=== PATIENT | male | born 1995 | race Caucasian/White ===

== ENCOUNTER 2018-08-25 23:49 | Emergency (ER) | payer BC, MEDICAID ==
[2018-08-26] MEDS ORDERED: IPRATROPIUM-ALBUTEROL 3 ML NEB INHALATION STA ×2 (00:12→01:31)
[2018-08-26 00:37] VITALS: RESP 18
[2018-08-26 01:22] VITALS: BP 113/65; TEMP 98.6
--- NOTE | 2018-08-26 01:28 | XR ---
EXAM: XR Chest, 2 Views CLINICAL HISTORY: ITS.REASON XR Reason: Pain TECHNIQUE: Frontal and lateral views of the chest. COMPARISON: No relevant prior studies available. FINDINGS: Lungs: Unremarkable. No consolidation. Pleural space: Unremarkable. No pneumothorax. Heart: Unremarkable. No cardiomegaly. Mediastinum: Unremarkable. Bones/joints: Unremarkable. IMPRESSION: Normal chest x-rays.
[2018-08-26] MEDS ORDERED: predniSONE 20 MG TAB PO STA (01:31)
--- NOTE | 2018-08-26 01:38 | ED ---
URI HPI - General Chief Complaint: Upper Respiratory Infection Stated Complaint: HEIDI Source: patient Mode of arrival: wheelchair Limitations: no limitations - History of Present Illness Initial Comments: Ramón is a previously healthy 22-year-old male who is brought to the emergency department today by his mother for evaluation of upper respiratory symptoms and shortness of breath. Patient mother reports that as a child he did have intermittent wheezing and was prescribed albuterol though he never had a formal diagnosis of asthma. Patient reports that for the past few days he's had nasal congestion and runny stuffy nose and a minimally productive cough. Patient reports that today he was just feeling like he was wheezing in his chest was very tight which made him feel very tired and prompted him to ask his mother brings the ER for further evaluation. Patient reports she's had subjective fevers but doesn't have a thermometer at home. Treated. He's been taking Tylenol and Motrin for body aches. Patient states he did not receive a flu vaccination this year. - Related Data Previous Rx's Medication Instructions Recorded Albuterol Inhaler [Ventolin Hfa 1 - 2 puff INHALATION RT-Q6H PRN 08/26/18 Inhaler] #1 inhaler predniSONE [Deltasone] 40 mg PO DAILY 5 Days #10 tablet 08/26/18 Allergies Allergy/AdvReac Type Severity Reaction Status Date / Time No Known Allergies Allergy Verified 02/12/14 12:30 Review of Systems ROS Statement: Those systems with pertinent positive or pertinent negative responses have been documented in the HPI. ROS Other: All systems not noted in ROS Statement are negative. Past Medical History Past Medical History: Thyroid Disorder Additional Past Medical History / Comment(s): headaches History of Any Multi-Drug Resistant Organisms: MRSA Date of last positivie culture/infection: 2009 MDRO Source:: leg Past Surgical History: Ear Surgery, Hernia Repair Past Psychological History: Depression Smoking Status: Never smoker Past Alcohol Use History: Occasional Past Drug Use History: Marijuana General Exam - General Exam Comments Initial Comments: Physical Exam GENERAL: Patient is well-developed and well-nourished. Patient is nontoxic and well- hydrated and is in no distress. HENT: Normocephalic, Atraumatic. EYES: PERRL, EOMI PULMONARY: Expiratory wheezing CARDIOVASCULAR: There is a regular rate and rhythm without any murmurs gallops or rubs. ABDOMEN: Soft and nontender with normal bowel sounds. SKIN: Skin is clear with no lesions or rashes and otherwise unremarkable. : Deferred NEUROLOGIC: Patient is alert and oriented x3. Moving all extremities spontaneously MUSCULOSKELETAL: Normal extremities with adequate strength and full range of motion. No lower extremity swelling or edema. No calf tenderness. PSYCHIATRIC: Normal psychiatric evaluation. Limitations: no limitations Limitations: no limitations Course Vital Signs 08/25/18 08/26/18 08/26/18 23:55 00:37 00:42 Temperature 99.1 F Pulse Rate 70 75 76 Respiratory 20 18 18 Rate Blood Pressure 122/64 O2 Sat by Pulse Oximetry 08/26/18 08/26/18 08/26/18 01:20 01:51 02:02 Temperature 98.6 F Pulse Rate 64 73 76 Respiratory 18 18 18 Rate Blood Pressure 113/65 O2 Sat by Pulse 95 Oximetry Medical Decision Making - Medical Decision Making Patient was seen and evaluated history was obtained from the patient Patient with multiple days of URI-like symptoms, nasal congestion rhinorrhea, post nasal drip, minimally productive wheezy cough next and on exam patient has expiratory wheezing Patient was ordered a DuoNeb and chest x-ray and examined patient reported significant improvement after DuoNeb chest x-ray with no acute findings I have a high suspicion that the patient likely has a viral syndrome possibly influenza however his symptoms of been present for greater than 48 hours he would not benefit from Tamiflu at this time we'll continue to treat symptomatically patient agreeable to this Patient was given a second DuoNeb prior to discharge which she again reported improved his symptoms and signed patient discharged home with by mouth prednisone and a prescription for an albuterol inhaler all questions pertaining care were answered return parameters discussed patient discharged home in stable condition. Disposition Clinical Impression: Viral infection Disposition: HOME SELF-CARE Instructions (If sedation given, give patient instructions): Upper Respiratory Infection (ED) Prescriptions: Albuterol Inhaler [Ventolin Hfa Inhaler] 1 - 2 puff INHALATION RT-Q6H PRN #1 inhaler PRN Reason: Wheezing predniSONE [Deltasone] 40 mg PO DAILY 5 Days #10 tablet Is patient prescribed a controlled substance at d/c from ED?: No Referrals: Scooter Somers MD [Primary Care Provider] - 1-2 days
[2018-08-26 02:03] VITALS: PULSE 76
== END 2018-08-26 02:07 | disposition home or self-care (01) ==
LOC: EC 23:49
DX: B34.9 Viral infection, unspecified (principal)
CPT/HCPCS: 94640 ×2; 71046; 99285; J7512

== ENCOUNTER 2021-02-04 11:29 | Emergency (ER) | payer OTHER, MEDICAID, BC ==
[2021-02-04 11:38] VITALS: BP 131/83; PULSE 68; RESP 18; TEMP 98.8
[2021-02-04] MEDS ORDERED: DIPH,PERTUS(ACELL)TETVAC-LF 0.5 ML VIAL IM ONE (11:47)
[2021-02-04] MEDS ORDERED: GELATIN SPONGE,ABSORB (SMALL) 1 EACH SPONGE TOPICAL STA (11:47)
[2021-02-04] MEDS ORDERED: SILVER NITRATE APPLICATOR 1 EACH STICK..EA. TOPICAL STA (11:47)
--- NOTE | 2021-02-04 12:19 | XR ---
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 Joint spaces are preserved. There is distal tip index finger soft tissue trauma. No osseous involvement is evident. No radiopaque foreign bodies are evident. IMPRESSION: 1. Distal soft tissue trauma index finger. No underlying osseous abnormality is evident.
--- NOTE | 2021-02-04 12:32 | ED ---
Wound/Laceration HPI - General Chief Complaint: Wound/Laceration Stated Complaint: [facility] Finger lac Time Seen by Provider: 02/04/21 11:41 Source: patient Mode of arrival: ambulatory Limitations: no limitations - History of Present Illness Initial Comments: Patient is a 25-year-old male presenting to the emergency Department with complaints of a laceration to his right index finger. 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 He states this happened about an hour prior to arrival, he's been trying to control the bleeding without success. He is not on blood thinners. His tetanus is not up-to-date. He states his pain is minimal at this time. He has no further complaints. - Related Data Previous Rx's Medication Instructions Recorded Albuterol Inhaler ([facility]) [Ventolin 1 - 2 puff INHALATION RT-Q6H PRN 08/26/18 Hfa Inhaler ([facility])] #1 inhaler predniSONE [Deltasone] 40 mg PO DAILY 5 Days #10 tablet 08/26/18 Allergies Allergy/AdvReac Type Severity Reaction Status Date / Time No Known Allergies Allergy Verified 02/04/21 11:31 Review of Systems ROS Statement: Those systems with pertinent positive or pertinent negative responses have been documented in the HPI. ROS Other: All systems not noted in ROS Statement are negative. Past Medical History Past Medical History: Thyroid Disorder Additional Past Medical History / Comment(s): headaches History of Any Multi-Drug Resistant Organisms: MRSA Date of last positivie culture/infection: 2009 MDRO Source:: leg Past Surgical History: Ear Surgery, Hernia Repair Past Psychological History: Depression Smoking Status: Never smoker Past Alcohol Use History: Occasional Past Drug Use History: Marijuana General Exam - General Exam Comments Initial Comments: GENERAL: Patient is well-developed and well-nourished. Patient is nontoxic and in no acute distress. HEAD: Atraumatic, normocephalic. EYES: Pupils equal round and reactive to light, extraocular movements intact, sclera anicteric, conjunctiva are normal. Eyelids were unremarkable. LUNGS: Unlabored respirations. Breath sounds clear to auscultation bilaterally and equal. No wheezes rales or rhonchi. HEART: Regular rate and rhythm without murmurs, rubs or gallops. MUSCULOSKELETAL: Normal extremities with adequate strength and normal range of motion, no pitting or edema. No clubbing or cyanosis. NEUROLOGICAL: Patient is alert and oriented x 3. SKIN: Warm, Dry, normal turgor, no rashes. Patient has avulsion of the tissue of the distal end of his right index finger with partial nail involvement. This is about 0.5 cm in diameter. There is no flap to suture down. He does have one little area that is bleeding. The rest is been controlled. Limitations: no limitations Course Vital Signs 02/04/21 11:35 Temperature 98.8 F Pulse Rate 68 Respiratory 18 Rate Blood Pressure 131/83 O2 Sat by Pulse 97 Oximetry Procedures - Procedures Initial comment: Patient's wound was cleaned, the bleeding did stop with just pressure, there is currently no active bleeding. I did apply Gelfoam and a bandage to the wound. He tolerated procedure well. 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 There is partial nail involvement. I did do an x-ray, no bone involvement. Bleeding is controlled with pressure, there is no active bleeding. We did update his tetanus. Gelfoam was applied along with a bandage. He is stable for discharge. We discussed wound care. He is in agreement with this plan of care. He can follow up with his PCP as needed. Case discussed with Dr. Gunn. Disposition Clinical Impression: Laceration of right index finger with damage to nail Disposition: HOME SELF-CARE Condition: Stable Instructions (If sedation given, give patient instructions): Acute Wound Care (ED) Additional Instructions: Please return to the Emergency Department if symptoms worsen or any other concerns. Use Gelfoam as described along with bandage over the next few days. Keep area clean and dry. Follow-up with your family doctor as needed. Is patient prescribed a controlled substance at d/c from ED?: No Referrals: Scooter Somers MD [Primary Care Provider] - 1-2 days Time of Disposition: 12:31
== END 2021-02-04 12:39 | disposition home or self-care (01) ==
LOC: EC 11:29
DX: S61.310A Laceration without foreign body of right index finger with damage to nail, initial encounter (principal); W27.4XXA Contact with kitchen utensil, initial encounter; Y99.0 Civilian activity done for income or pay
CPT/HCPCS: 90471; 90715; 99283